=== PATIENT | female | born 1935 | race Hispanic/Latino ===

== ENCOUNTER → 2018-01-31 | Outpatient (CLI) | payer OTHER ==
[~2018-01-31] MED LIST: ALPR0.5T8 PO; ASCO10007 PO; CALC600T12 PO; CHOL500045 PO; CLON0.1T PO; ERGO400T3 PO; FLEC50TA3 PO; LEVO25TA54 PO; LISI-613 PO; MAGN250T10 PO; NADO40TA19 PO; OMEP40CA37 PO; VITA-328 PO
== END ==
LOC: SHCH 13:35
PROVIDERS: ATTEND Internal Medicine Cardiovascular Disease
DX: I34.0 Nonrheumatic mitral (valve) insufficiency (principal); Z95.0 Presence of cardiac pacemaker
CPT/HCPCS: 93306

== ENCOUNTER → 2018-08-28 | Outpatient (CLI) | payer OTHER | END | disposition home or self-care (01) | LOC: SHCH 15:04 | PROVIDERS: ATTEND Internal Medicine Cardiovascular Disease | DX: I34.0 Nonrheumatic mitral (valve) insufficiency (principal); I10 Essential (primary) hypertension; E78.5 Hyperlipidemia, unspecified; I48.91 Unspecified atrial fibrillation; Z86.73 Personal history of transient ischemic attack (TIA), and cerebral infarction without residual deficits | CPT/HCPCS: 93306 ==

== ENCOUNTER → 2019-06-14 | Outpatient (CLI) | payer OTHER | END | disposition home or self-care (01) | LOC: SHCH 14:04 | PROVIDERS: ATTEND Internal Medicine Cardiovascular Disease | DX: I34.0 Nonrheumatic mitral (valve) insufficiency (principal); I49.5 Sick sinus syndrome | CPT/HCPCS: 93306 ==

== ENCOUNTER 2019-08-14 11:39 | Observation (INO) | payer OTHER ==
[2019-08-12 09:56] LABS: BASOPHILS % (AUTO) 0.5 % (0.0-5.0); EOSINOPHILS % (AUTO) 1.6 % (0.0-8.0); HEMATOCRIT 30.6 % (36-48); LYMPHOCYTES % (AUTO) 16.4 % (21.0-51.0); MEAN CORPUSCULAR HEMOGLOBIN 31.7 pg (27.0-33.0); MEAN CORPUSCULAR HGB CONC 33.7 g/dL (32.0-36.0); MEAN CORPUSCULAR VOLUME 93.9 fL (79-99); MONOCYTES % (AUTO) 7.3 % (3.0-13.0); NEUTROPHILS % (AUTO) 74.2 % (40.0-77.0); PLATELET COUNT (AUTO) 198 K/uL (130-400); RED BLOOD CELL COUNT(AUTO) 3.26 MIL/uL (4.00-5.50); RED CELL DISTRIBUTION WIDTH 13.5 % (11.0-15.5); WHITE BLOOD COUNT (AUTO) 8.2 K/uL (4.8-10.8)
[2019-08-12 10:00] VITALS: BP 147/56
[2019-08-12 10:03] LABS: CREATININE 1.1 mg/dL (0.5-1.5); POTASSIUM 4.8 mmol/L (3.5-5.1)
[2019-08-12 10:13] LABS: INR 1.08 (0.85-1.15); PARTIAL THROMBOPLASTIN TIME 30.6 SEC (26.3-35.5); PROTHROMBIN TIME 11.3 SEC (9.6-11.6)
--- NOTE | 2019-08-12 10:47 | NUR ---
ALLERGY TO SHRIMP PT STATES SHE IS UNSURE IS SHE IS ALLERGIC TO SHRIMP. SHE HAS BEEN EATING SHRIMP WITHOUT ANY PROBLEMS UNTIL 2 YRS AGO, X1 EPISODE. SHE HAD NAUSEA AND DIZZINESS AFTER EATING SHRIMP. DEEP PASCUAL NOTIFIED. NO FURTHER ORDERS GIVEN, STATED SHE HAS HAD HEART CATHS IN THE PAST WITHOUT ANY PROBLEMS.
--- NOTE | 2019-08-12 10:49 | NUR ---
ELIQUIS PER PT, OFFICE HAD TOLD HER TO STOP ELIQUIS THE DAY BEFORE PROCEDURE. CLARIFIED WITH DEEP PASCUAL. PER KURT, HAVE PT STOP ELIQUIS TODAY. CALLED PT, SPOKE WITH SON, INSTRUCTED TO HAVE PT STOP ELIQUIS NOW. VERBALIZED UNDERSTANDING.
--- NOTE | 2019-08-13 12:12 | NUR ---
ABNORMAL LAB: KURT ADAME NOTIFIED OF HGB 10.3 AND HCT 30.6. NO ORDERS GIVEN
[2019-08-14] VITALS (9 sets, daily range): BP systolic 130–153; BP diastolic 56–79
[~2019-08-14] VITALS: Ht 147.3 cm; Wt 66.5 kg
[~2019-08-14 11:39] MED LIST changes: -ALPR0.5T8 PO; +APIX5TAB PO; -ASCO10007 PO; -CALC600T12 PO; +CEFAZOLIN SODIUM 1 GM VIAL IVP SCH; -CHOL500045 PO; -ERGO400T3 PO; +FURO20TA4 PO; +LEVO50TA11 PO; -MAGN250T10 PO; -OMEP40CA37 PO; +ROSU10TA28 PO; -VITA-328 PO
--- NOTE | 2019-08-14 12:45 | NUR ---
ASSESSMENT PT HERE FOR PROCEDURE. DENIES ANY PAIN OR SOB. SON AT BEDSIDE.
[2019-08-14] MEDS: SODIUM CHLORIDE 0.9% 1000ML 1,000 ML IV SCH (13:28)
--- NOTE | 2019-08-14 17:18 | NUR ---
PROCEDURE PT TAKEN TO PROCEDURE VIA BED. DENIES ANY DISCOMFORT AT THIS TIME.
[2019-08-14] MEDS ORDERED: MIDAZOLAM HCL 1 MG/ML 2ML VIAL ONE ×2 (17:22→18:19)
[2019-08-14] MEDS ORDERED: CEFAZOLIN SODIUM 1 GM VIAL ONE (17:22)
[2019-08-14] MEDS ORDERED: IODIXANOL 320 MG/ML 100 ML VIAL ONE (17:22)
[2019-08-14] MEDS ORDERED: BUPIVACAINE/PF 0.25% 30ML VIAL IJ ONE (17:22)
[2019-08-14] MEDS ORDERED: LIDOCAINE HCL 1% MDV 50ML VIAL ONE (17:23)
[2019-08-14] MEDS ORDERED: MEPERIDINE-PF 25 MG/ML SYG ONE ×2 (17:23→18:20)
[2019-08-14] MEDS ORDERED: OCTYL 2-CYANOACRYLATE 1 EACH TP ONE (18:25)
[2019-08-14] MEDS ORDERED: THROMBIN-JMI 5000 UNIT/VIAL TP ONE (19:00)
[2019-08-14] MEDS ORDERED: ONDANSETRON HCL 4 MG/2 ML VIAL IV PRN (19:30)
[2019-08-14] MEDS ORDERED: FUROSEMIDE 20 MG TABLET PO PRN (19:30)
[2019-08-14] MEDS ORDERED: ACETAMINOPHEN-CODEINE 300/30MG TAB PO PRN (19:30)
[2019-08-14] MEDS ORDERED: TEMAZEPAM 30 MG CAP PO PRN (19:30)
--- NOTE | 2019-08-14 20:45 | NUR ---
REPORT RECEIVED FROM KEVIN FARIAS. REPORT GIVEN TO JIM FARIAS.
[2019-08-14] MEDS: CLONIDINE HCL 0.1 MG TABLET PO SCH (21:00)
[2019-08-14] MEDS ORDERED: ATORVASTATIN CALCIUM 20 MG TABLET PO SCH (21:00)
[2019-08-14] MEDS ORDERED: NADOLOL 40 MG TAB PO SCH (21:00)
--- NOTE | 2019-08-14 21:00 | NUR ---
PT ARRIVED FROM [employer]. S/P BIV AICD. NO DISTRESS NOTED. SON AT BEDSIDE. PRESSURE DRESSING IN PLACE. IV FLUIDS. MINIMAL SORENESS NOTED. PT IN BEDREST UNTIL THE AM. AA03. PERRLA. PT HAS BILATERAL EDEMA NON PITTING +2.
[2019-08-14] MEDS: LISINOPRIL 20 MG TABLET PO SCH (22:49)
[2019-08-14] MEDS: FLECAINIDE ACETATE 100 MG TABLET PO SCH (22:49)
[2019-08-14] MEDS: ACETAMINOPHEN-CODEINE 300/30MG TAB PO PRN (22:55)
[2019-08-15] MEDS: SODIUM CHLORIDE 0.9% 1000ML 1,000 ML IV SCH ×2 (01:52→01:53)
[2019-08-15] MEDS: CEFAZOLIN SODIUM 1 GM VIAL IVP SCH ×2 (02:19→09:21)
[2019-08-15 04:21] VITALS: BP 116/88
[2019-08-15] MEDS ORDERED: LEVOTHYROXINE 25 MCG TABLET PO SCH (06:30)
[2019-08-15 06:47] LABS: HEMATOCRIT 30.3 % (36-48); MEAN CORPUSCULAR HGB CONC 33.8 g/dL (32.0-36.0); MEAN CORPUSCULAR VOLUME 94.5 fL (79-99); PLATELET COUNT (AUTO) 186 K/uL (130-400); WHITE BLOOD COUNT (AUTO) 8.9 K/uL (4.8-10.8)
[2019-08-15 07:00] VITALS: BP 164/78
[2019-08-15 07:01] LABS: POTASSIUM 4.7 mmol/L (3.5-5.1)
[2019-08-15] MEDS ORDERED: POTASSIUM CHLORIDE 10% ELIXIR 20 MEQ/15 ML UDCUP PO SCH (07:15)
[2019-08-15] MEDS ORDERED: FUROSEMIDE 10 MG/ML 4ML VIAL IV SCH (07:15)
[2019-08-15 07:32] LABS: LYMPHOCYTES % (MANUAL) 20 % (22-44); MONOCYTES % (MANUAL) 6 % (2-9); SEGMENTED NEUTROPHILS % 74 % (40-70)
[2019-08-15 07:33] LABS: MAN.DIFF COMMENT-IMPRESSION MANUAL DIFFERENTIAL
[2019-08-15 07:34] LABS: PLATELET MORPHOLOGY COMMENT ADEQUATE
[2019-08-15] MEDS ORDERED: METOPROLOL TARTRATE 50 MG TAB PO SCH (09:00)
[2019-08-15] MEDS: FLECAINIDE ACETATE 100 MG TABLET PO SCH (09:18)
[2019-08-15] MEDS: CLONIDINE HCL 0.1 MG TABLET PO SCH (09:19)
[2019-08-15] MEDS: LISINOPRIL 20 MG TABLET PO SCH (09:20)
[2019-08-15] MEDS: ACETAMINOPHEN-CODEINE 300/30MG TAB PO PRN (09:27)
[2019-08-15 11:00] VITALS: BP 161/61
--- NOTE | 2019-08-15 15:00 | NUR ---
DISCHARGE Discharge instructions explained to pt with her son at bedside for same instructions. Pt aware of scheduled follow up appointment with . Pt is also aware that she will need to follow up with her PCP early next week. Handwritten prescription given to pt's son - doxycycline 100mg q12h x5days. All other home meds have been continued with instructions to pt to resume eliquis 08/16/19. Pt aware that procedural opsite drsg is to remain in place until seen by in follow up. Questions invited/addressed. Pt voiced understanding of information discussed. Pt discharged to home with her son. No complaints voiced by pt at time of discharge.
[2019-08-17] MEDS ORDERED: LEVOTHYROXINE 50 MCG TABLET PO SCH (06:30)
== END 2019-08-15 15:05 | disposition home or self-care (01) ==
LOC: DAH 11:39 → SUH 11:39 → 2AH 11:40 → SUH 11:40
PROVIDERS: ADMIT Internal Medicine; ATTEND Internal Medicine
DX: I44.2 Atrioventricular block, complete (principal); I49.5 Sick sinus syndrome; I48.0 Paroxysmal atrial fibrillation; I10 Essential (primary) hypertension; E78.00 Pure hypercholesterolemia, unspecified; R06.09 Other forms of dyspnea; Z95.0 Presence of cardiac pacemaker; Z79.899 Other long term (current) drug therapy
CPT/HCPCS: 33225; 33233; 33249; 36415 ×2; 71046; 80048 ×2; 85025 ×2; 85610; 85730; 93005; 96374; 96375; 96376; A4215; A4216; A4221; A4222; A4223 ×3; A4606; A4663; C1769 ×2; C1882; C1894; C1895; C1900; G0378 ×19; J0690 ×3; J1940; J2175 ×2; J2250 ×2; J3490 ×3; J7030; Q9967; 99156; 99157

== ENCOUNTER 2020-02-14 06:16 | Inpatient (IN) | payer MEDICARE ==
[2020-02-14] VITALS (28 sets, daily range): BP systolic 69–146; BP diastolic 40–108
[~2020-02-14 06:16] MED LIST changes: -CEFAZOLIN SODIUM 1 GM VIAL IVP SCH; -NADO40TA19 PO; +NADO40TA2 PO; +VITAD50000 PO
[2020-02-14 07:09] LABS: ABG BASE EXCESS -9.8 mmol/L (-2.0-3.0); ABG HCO3 12.4 mmol/L (21.0-28.0); ABG OXYGEN SATURATION 97.9 % (95.0-99.0); ABG PCO2 21 mmHg (32-45)
[2020-02-14 07:31] LABS: BASOPHILS % (AUTO) 0.1 % (0.0-5.0); HEMATOCRIT 29.9 % (36-48); LYMPHOCYTES % (AUTO) 16.9 % (21.0-51.0); MEAN CORPUSCULAR HEMOGLOBIN 28.1 pg (27.0-33.0); MEAN CORPUSCULAR HGB CONC 31.8 g/dL (32.0-36.0); MEAN CORPUSCULAR VOLUME 88.5 fL (79-99); MONOCYTES % (AUTO) 8.7 % (3.0-13.0); NEUTROPHILS % (AUTO) 74.1 % (40.0-77.0); PLATELET COUNT (AUTO) 233 K/uL (130-400); RED BLOOD CELL COUNT(AUTO) 3.38 MIL/uL (4.00-5.50); RED CELL DISTRIBUTION WIDTH 15.3 % (11.0-15.5); WHITE BLOOD COUNT (AUTO) 8.8 K/uL (4.8-10.8)
[2020-02-14 07:34] LABS: CREATINE KINASE, TOTAL 48 U/L (21-232); LIPASE 145 U/L (114-286)
[2020-02-14 07:36] LABS: ALBUMIN 3.2 g/dL (3.5-5.0); BILIRUBIN,TOTAL 1.1 mg/dL (0.2-1.0); CREATININE 2.4 mg/dL (0.5-1.5); TOTAL PROTEIN, SERUM 7.5 g/dL (6.0-8.3)
[2020-02-14] MEDS ORDERED: CEFTRIAXONE SODIUM 2 GM VIAL ONE (07:45)
[2020-02-14] MEDS ORDERED: AZITHROMYCIN 500MG+NS 250ML 250 ML IV ONE (07:46)
[2020-02-14 07:48] LABS: B-TYPE NATRIURETIC PEPTIDE 4730 pg/mL (0-100)
[2020-02-14] MEDS ORDERED: FUROSEMIDE 10 MG/ML 2ML VIAL ONE ×2 (07:48→07:59)
[2020-02-14 07:53] LABS: POTASSIUM 7.3 mmol/L (3.5-5.1)
[2020-02-14 07:59] LABS: AMMONIA 32 umol/L (11-32)
[2020-02-14] MEDS ORDERED: SODIUM POLYSTYRENE SULFONATE 15 GM/60 ML ML ONE (07:59)
[2020-02-14] MEDS ORDERED: ONDANSETRON HCL 4 MG/2 ML VIAL ONE (08:08)
[2020-02-14] MEDS ORDERED: CALCIUM GLUCONATE 1 GM/10 ML VIAL IV ONE (08:15)
[2020-02-14] MEDS ORDERED: ACETAMINOPHEN 325 MG TAB PO PRN (08:45)
[2020-02-14] MEDS ORDERED: CEFTRIAXONE SODIUM 1 GM IV SCH (08:45)
[2020-02-14] MEDS ORDERED: AZITHROMYCIN 500MG+NS 250ML 250 ML IV SCH (08:45)
[2020-02-14] MEDS ORDERED: FAMOTIDINE/PF 20 MG/2 ML VIAL IV SCH (09:00)
[2020-02-14] MEDS ORDERED: FUROSEMIDE 10 MG/ML 4ML VIAL IVP SCH (09:00)
--- NOTE | 2020-02-14 09:45 | NUR ---
SHELLY TAYLOR present for SHELLY SOSA, CLAUDIA spoke to Dr Cary, she asked I contact family and notify of pt's cardiac arrest. SW spoke to son Lyndon Bee [phone]. Son states he is pt's only son who lives in [place], and pt is . Son informed of code blue and he stated that pt wanted to be resuscitated. Informed son per MD, pt's condition is critical and prognosis is poor. Son stated that he wants pt to remain FULL CODE at this time. Son provided with contact # for ER and SW for f/u. SW recd call from niece Pinky Vázquez (listed as Next of Kin on face sheet). Per niece, son contacted her about code blue and she wanted to know if family was able to see pt and what happens if pt were to . Informed at this time, we are not allowing visitors and encouraged niece to contact home of choice and discuss how funerals are being handled at this time related to [id number] orders. Niece given contact # for ER and SW for f/u.
[2020-02-14] MEDS ORDERED: DEXTROSE 50%-WATER 50 ML DISP.SYRIN IV ONE (10:01)
[2020-02-14 10:31] LABS: ABG BASE EXCESS -13.8 mmol/L (-2.0-3.0); ABG HCO3 12.9 mmol/L (21.0-28.0); ABG OXYGEN SATURATION 99.5 % (95.0-99.0); ABG PCO2 33 mmHg (32-45)
[2020-02-14] MEDS ORDERED: EPINEPHRINE 10 MG in SODIUM CHLORIDE 0.9% 250 ML IV SCH (10:45)
[2020-02-14 10:53] LABS: INR 2.09 (0.85-1.15); PARTIAL THROMBOPLASTIN TIME 31.3 SEC (26.3-35.5); PROTHROMBIN TIME 21.9 SEC (9.6-11.6)
--- NOTE | 2020-02-14 11:09 | NUR ---
f/u call CLAUDIA spoke to Jeanmarie Er director for update on pt. Son Lyndon Bee [phone] and updated him on pt. Son informed that pt was coded for 35 minutes and currently intubated and on pressors, prognosis is poor. Sw wants to be updated on condition. Provided emotional support, son states he is alone and only relative in cousin Milana Vázquez in [place]. Son asking if he can see pt if he comes in from [place], informed son that at this time we are not allowing visitors related to Coronavirus. Son voiced understanding. Pt remains FULL CODE
[2020-02-14 11:44] LABS: APPEARANCE,URINE CLOUDY (CLEAR); BILIRUBIN,URINE SMALL (NEGATIVE); COLOR,URINE YELLOW (YELLOW); GLUCOSE, URINE (UA) NEGATIVE (NEGATIVE); KETONES,URINE NEGATIVE (NEGATIVE); LEUKOCYTE ESTERASE ,URINE MODERATE (NEGATIVE); NITRATE,URINE NEGATIVE (NEGATIVE); OCCULT BLOOD,URINE LARGE (NEGATIVE); PH,URINE 5.5 (5.0-8.0); PROTEIN,URINE 100 mg/dL (NEGATIVE)
[2020-02-14 12:27] LABS: BACTERIA,URINE Many /HPF (None Seen); RBC,URINE 0-1 /HPF (0-1); SQUAMOUS EPITHELIAL CELL,UR Rare /HPF (0-2); WBC,URINE TNTC /HPF (0-1)
[2020-02-14 12:28] LABS: ABG BASE EXCESS -16.4 mmol/L (-2.0-3.0); ABG HCO3 9.7 mmol/L (21.0-28.0); ABG OXYGEN SATURATION 97.6 % (95.0-99.0); ABG PCO2 25 mmHg (32-45)
--- NOTE | 2020-02-14 14:08 | NUR ---
LAST RITES Costa recd call from niece Milana Vázquez. Niece requesting last rites for pt. Explained to niece that pt is in isolation and I would need to check with Administration for how we can honor their request. Costa spoke to Chloe Pierre regarding process since pt is in isolation. Chloe spoke to Yolanda Sandoval and it was suggested we do by [employer] device if family approved. Costa spoke to niece and informed of above. Niece states they understand situation and they are fine with this, it is just important to family that she receive last Rites. Costa left message and sent text on [facility] cell phone and office.
[2020-02-14] MEDS ORDERED: BUMETANIDE 0.25 MG/ML 10 ML 80 ML IV SCH (15:15)
[2020-02-14 15:27] LABS: ABG BASE EXCESS -18.4 mmol/L (-2.0-3.0); ABG OXYGEN SATURATION 89.7 % (95.0-99.0); ABG PCO2 22 mmHg (32-45)
--- NOTE | 2020-02-14 16:00 | NUR ---
LAST RITES Sw was present when Father Johan Agustin gave Last Rites to pt via Zoom. Sw contacted niece that Last Rites were given and niece was very appreciative that this had been done for pt and family comfort. Sw to follow and assist as able
--- NOTE | 2020-02-14 16:00 | NUR ---
RECEIVED PT FROM ER. PT IS UNRESPONSIVE, NO SEDATION, PUILS FIXED. PT'S TEMP IS COLD AT 90DEGREES F. DR SHOEMAKER INFORMED ON VITALS, ABG, PRESSORS ARE EPI AND DOPAMINE
[2020-02-14 17:41] LABS: ABG BASE EXCESS -7.6 mmol/L (-2.0-3.0); ABG OXYGEN SATURATION 95.5 % (95.0-99.0); ABG PCO2 33 mmHg (32-45)
[2020-02-14] MEDS ORDERED: SODIUM CHLORIDE 0.9% 500ML 500 ML IV ONE (18:04)
[2020-02-14] MEDS ORDERED: DOPAMINE 800MG/D5 250ML 250 ML IV ONE (19:33)
--- NOTE | 2020-02-14 21:00 | NUR ---
Patient's son Lyndon Bee contacted and obtained a DNR consent over the phone.
--- NOTE | 2020-02-14 21:10 | NUR ---
Dr. Edwards called and updated on patient status. Patient hypotensive and continues to be hypothermic. MD stated to go up on the already maxed Epinepherine, start vasopressin, and hydrocortisone.
--- NOTE | 2020-02-14 21:25 | NUR ---
Patient at 2124. Family notified and Primary provider contacted and updated.
[2020-02-15] MEDS ORDERED: ENOXAPARIN SODIUM 30 MG/0.3 ML SQ SCH (09:00)
== END 2020-02-14 21:25 | disposition expired | DRG 208 ==
LOC: EDH 06:16 → EDHIP 08:43 → 2CH 16:00
PROVIDERS: ADMIT Internal Medicine; ATTEND Internal Medicine
PROC: 0BH17EZ Insertion of Endotracheal Airway into Trachea, Via Natural or Artificial Opening (ICD-10-PCS; principal; 2020-02-14)
PROC: 5A1935Z Respiratory Ventilation, Less than 24 Consecutive Hours (ICD-10-PCS; 2020-02-14)
PROC: 06HY33Z Insertion of Infusion Device into Lower Vein, Percutaneous Approach (ICD-10-PCS; 2020-02-14)
PROC: B54BZZA Ultrasonography of Right Lower Extremity Veins, Guidance (ICD-10-PCS; 2020-02-14)
PROC: 5A12012 Performance of Cardiac Output, Single, Manual (ICD-10-PCS; 2020-02-14)
DX: J96.01 Acute respiratory failure with hypoxia (principal); J18.9 Pneumonia, unspecified organism; I13.0 Hypertensive heart and chronic kidney disease with heart failure and stage 1 through stage 4 chronic kidney disease, or unspecified chronic kidney disease; I42.0 Dilated cardiomyopathy; N17.9 Acute kidney failure, unspecified; E87.4 Mixed disorder of acid-base balance; R57.0 Cardiogenic shock; E03.9 Hypothyroidism, unspecified; E11.22 Type 2 diabetes mellitus with diabetic chronic kidney disease; I50.9 Heart failure, unspecified; J44.9 Chronic obstructive pulmonary disease, unspecified; I48.0 Paroxysmal atrial fibrillation; Z66 Do not resuscitate; N18.9 Chronic kidney disease, unspecified; I49.5 Sick sinus syndrome; D64.9 Anemia, unspecified; E87.5 Hyperkalemia; Z20.828 Contact with and (suspected) exposure to other viral communicable diseases; Z99.81 Dependence on supplemental oxygen; Z79.01 Long term (current) use of anticoagulants; Z79.899 Other long term (current) drug therapy; Z82.49 Family history of ischemic heart disease and other diseases of the circulatory system; Z82.3 Family history of stroke; Z88.8 Allergy status to other drugs, medicaments and biological substances; Z91.013 Allergy to seafood; Z95.810 Presence of automatic (implantable) cardiac defibrillator
CPT/HCPCS: 31500; 36415; 36600; 71045; 80053; 81001; 82140; 82270; 82435; 82550; 82803; 82947; 82948; 83605; 83690; 83880; 84132; 84145; 84295; 84484; 85018; 85025; 85378; 85610; 85730; 87040; 87077; 87088; 87186; 87633; 87635; 87804; 92950; 93005; 93970; 94002; 99291; G0378; J0171; J0456; J0610; J0696; J1265; J1940; J2405; J3490; J7040; J7050; J7070